=== PATIENT | female | born 1935 ===

== ENCOUNTER 2024-12-02 07:39 | Inpatient (IN) | payer MEDICARE, OTHER, SELFPAY ==
[2024-11-13 11:25] LABS: Hematocrit 48.6 % (37.0-47.0); Hemoglobin 16.6 g/dL (12.0-16.0); Mean Corp Hgb Conc. 34.2 g/dL (33.0-37.0); Mean Corpuscular Hgb 32.6 pg (27.0-31.0); Mean Corpuscular Volume 95.5 fL (81.0-99.0); Mean Platelet Volume 9.2 fL (7.4-10.4); Platelet Count 276 10^3/uL (130-400); Red Blood Cell Count 5.09 10^6/uL (4.20-5.40); Red Cell Dist. Width 13.2 % (11.5-14.5); White Blood Cell Count 9.4 10^3/uL (4.8-10.8)
[2024-11-13 12:01] LABS: ALT (SGPT) 17 U/L (0-35); AST (SGOT) 23 U/L (14-36); Albumin 4.1 g/dl (3.5-5.0); Alkaline Phosphatase 95 U/L (38-126); Blood Urea Nitrogen 21 mg/dl (7-17); Calcium 9.7 mg/dl (8.4-10.2); Carbon Dioxide 31 mmol/L (22-30); Chloride 101 mmol/L (98-107); Glucose 85 mg/dl (70-99); Potassium 4.4 mmol/L (3.5-5.1); Sodium 136 mmol/L (135-145); Total Bilirubin 0.7 mg/dl (0.2-1.3); Total Protein 6.9 g/dl (6.3-8.2); eGFR > 60.00
[2024-11-13 12:33] LABS: Glycohemoglobin (HgbA1c) 5.3 % (4.0-5.6)
[2024-11-13 14:15] VITALS: BMI 18.9
[2024-11-13 15:08] VITALS: BMI 18.9
--- NOTE | 2024-11-18 11:03 | VNURNOTE ---
Chart reveiwed. This author rec'ed update from Shey Falk MARLEN surgery moved to 11/25. Per message, patient prefers to go to [place] outpt PT after DC. Outpt date TBD.
Plan: Outpt PT at [place]. [facility] to assess and determine final DC dispo.
[2024-12-02] VITALS (18 sets, daily range): BP systolic 91–169; BP diastolic 42–84; PULSE 81
[2024-12-02] MEDS: TYLENOL 650 MG PO ×4 (08:00→19:45)
[2024-12-02] MEDS: CELEBREX 200 MG PO (08:01)
[2024-12-02] MEDS: NORMOSOL-R/PLASMALYTE-A 1000 IV ×2 (08:10→12:54)
[2024-12-02] MEDS: ROXICODONE 5 MG PO ×2 (11:27→19:45)
[2024-12-02] MEDS: VITAMIN D3 (cholecalciferol) 25 MCG PO (12:55)
[2024-12-02] MEDS: VITAMIN B1 100 MG PO (12:55)
--- NOTE | 2024-12-02 13:48 | W.PN.ORTHO ---
Today's Communication / Plan
-
D/c when clinically stable.
Pt has yet to schedule outpatient PT although she was advised to do so during her pre-op eval; will have daughter reach out to [place] [facility] to try and schedule RAL[facility].
Assessment
.
Distal Motor Intact: Yes
Dressing:
Scant areas of old incisional bleeding.
Assessment:
L hip OA s/p Deya jimenez/ Dr Rogers 12/02/24
DVT prophylaxis - ASA, b/l venous foot pumps
COPD and pulmonary nodules - monitor O2
- IS
- Continue inhaler
Chronic constipation secondary to current Tramadol - add nightly MOM to bowel regimen of Colace and Senna
Daily alcohol - 1 'small' glass of wine reported nightly
- Add thiamine/folic acid
- Consider Gabapentin, Serax HS
- Monitor for potential s/sx of withdrawal
History of recent tobacco abuse - last reported cigarette 11/10/24
- Would benefit from Cefadroxil upon d/c
Hypothyroidism
Skin cancer, status post excision
Hearing impairment bilaterally
The patient is an appropriate candidate for early discharge 12/03/24
Plan
.
Surgery / Date: Deya jimenez/ Dr Rogers 12/02/24
DVT Prophylaxis: Aspirin
Activity:
Out of bed.
PT/OT
Discharge Plan: Home w/ Outpatient PT
Subjective
.
.:
Patient resting comfortably in PACU.
L hip pain currently minimal.
Denies any new significant complaints.
Vital Signs and Labs
.
Vital Signs and Labs:
Lab Results
11/13/24 10:22
11/13/24 10:22
Temp Pulse Resp BP Pulse Ox
99.1 F 85 19 150/65 98
12/02/24 11:07 12/02/24 13:30 12/02/24 13:30 12/02/24 13:05 12/02/24 12:45
Physical Exam
-
HEENT: No pallor, cyanosis, or jaundice. Throat clear.
NECK: Supple. No JVD.
RESPIRATORY: Lungs clear to auscultation.
CVS: S1, S2 normal. RRR.�
ABDOMEN: Soft, non-tender. No distension.
EXTREMITIES: Strength equal, no calf pain with palpation/dorsiflexion. Calves soft.
EXPEDITER CLERK: AOx3. No focal deficits. charity fundraiser grossly intact
--- NOTE | 2024-12-02 14:32 | PTCARENOTE ---
1300 Patient S/P spinal in PACU reports no need to void. No bladder distention noted, bladder scan indicated 135ML of urine. Resting comfortably. Family continues to be updated on patient disposition.
[2024-12-02] MEDS: FOLVITE PO (15:25)
[2024-12-02] MEDS: ANCEF 5 IV ×2 (15:25→23:37)
[2024-12-02] MEDS: ASPIRIN 325 MG PO (17:07)
[2024-12-02] MEDS: DECADRON 4 MG PO (19:45)
[2024-12-02] MEDS: COLACE 100 MG PO (19:45)
[2024-12-02] MEDS: SENOKOT 17.2 MG PO (19:46)
[2024-12-02] MEDS: PEPCID 20 MG PO (21:07)
[2024-12-02] MEDS: BACTROBAN 2% OINTMENT 1 APPLIC NASAL (21:07)
[2024-12-02] MEDS: MILK OF MAGNESIA 30 ML PO (21:07)
[2024-12-03] MEDS: TYLENOL 650 MG PO ×3 (00:18→07:51)
--- NOTE | 2024-12-03 00:21 | PTCARENOTE ---
During hourly rounds, pt noted to be OOB at the bedside in the dark. RN asked pt where she was going, pt reported needing to void and was actively voiding at the bedside. Staff assist x2 w RW to commode for pt to void. Bed alarm placed, pt
reoriented to time, place and events. Pt stated 'Oh, i forgot I had surgery'. Safety maintained. Assessment ongoing.
[2024-12-03] MEDS: SYNTHROID 125 MCG PO (06:03)
[2024-12-03] MEDS: ROXICODONE 5 MG PO ×2 (06:03→08:45)
[2024-12-03 07:19] VITALS: BP 121/55
[2024-12-03] MEDS: VITAMIN D3 (cholecalciferol) 25 MCG PO (07:51)
[2024-12-03] MEDS: FOLVITE 0.5 MG PO (07:51)
[2024-12-03] MEDS: ASPIRIN 325 MG PO (07:51)
[2024-12-03] MEDS: COLACE 100 MG PO (07:51)
[2024-12-03] MEDS: DECADRON 4 MG PO (07:51)
[2024-12-03] MEDS: VITAMIN B1 100 MG PO (07:51)
[2024-12-03] MEDS: CELEBREX 200 MG PO (07:51)
[2024-12-03] MEDS: SENOKOT 17.2 MG PO (07:51)
[2024-12-03] MEDS: BACTROBAN 2% OINTMENT 1 APPLIC NASAL (08:03)
[2024-12-03] MEDS: LIPITOR 20 MG PO (08:03)
[2024-12-03] MEDS: SPIRIVA RESPIMAT 2.5 MCG 2 PUFF INH (08:37)
[2024-12-03] MEDS: STRIVERDI RESPIMAT 2 PUFF INH (08:37)
[2024-12-03 09:16] VITALS: BP 133/54
[2024-12-03 10:08] VITALS: BP 107/50; BP 122/48; PULSE 72; O2SAT 95
--- NOTE | 2024-12-03 10:27 | W.PN.ORTHO ---
Today's Communication / Plan
-
D/c today since clinically stable.
PT to assess again today w/ family members present prior to d/c.
Assessment
.
Distal Motor Intact: Yes
Dressing:
Scant areas of old incisional bleeding.
Assessment:
L hip OA s/p Deya GEE w/ Dr Rogers 12/02/24
DVT prophylaxis - ASA, b/l venous foot pumps
COPD and pulmonary nodules - O2 stable on RA
- IS
- Continue inhaler
Chronic constipation secondary to current Tramadol - continue nightly MOM to bowel regimen of Colace and Senna
Daily alcohol - 1 'small' glass of wine reported nightly
- Add thiamine/folic acid
- Consider Gabapentin, Serax HS
- Monitor for potential s/sx of withdrawal
Plan
.
Surgery / Date: Deya GEE w/ Dr Rogers 12/02/24
DVT Prophylaxis: Aspirin
Activity:
Out of bed.
PT/OT
Discharge Plan: Home w/ VN (per PT/OT recs today)
Subjective
.
.:
Patient resting comfortably in her bed.
L hip pain overall well controlled w/ current pain meds.
Denies any new significant complaints.
Eager for potential d/c today.
Vital Signs and Labs
.
Vital Signs and Labs:
Lab Results
11/13/24 10:22
11/13/24 10:22
Temp Pulse Resp BP Pulse Ox
98.3 F 62 18 121/55 95
12/03/24 07:19 12/03/24 07:19 12/03/24 08:41 12/03/24 07:19 12/03/24 08:41
Non-invasive Hgb result: 14.9
Physical Exam
-
HEENT: No pallor, cyanosis, or jaundice. Throat clear.
NECK: Supple. No JVD.
RESPIRATORY: Lungs clear to auscultation.
CVS: S1, S2 normal. RRR.�
ABDOMEN: Soft, non-tender. No distension.
EXTREMITIES: Strength equal, no calf pain with palpation/dorsiflexion. Calves soft.
TRANSFER MAN: AOx3. No focal deficits. umbrella supervisor grossly intact
--- NOTE | 2024-12-03 10:37 | W.DS.TRANS ---
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
-
Discharge Instructions:
Sleep Apnea Risk Low
Discharge Diagnosis/Procedures L hip OA s/p L MARLEN w/ Dr Rogers 12/02/24
Diet Other diet
Additional Diets Diabetic carb controlled x1 week for wound
healing/infection prevention
Activity As tolerated,With Walker
Additional Activity Patient will need supervision with all mobility
and transfers.
Driving Restrictions Not until seen by your Dr
Bathing Restrictions OK to Shower
Other Services PT,OT,VN
Wound Care Dressing to be removed 1 week post-surgery.
Instructions:
Stand-Alone Forms: Total Hip/Knee Replacement D/C
Changes to Home Medications: Yes
Discharge Medications:
DC Medications w/original date entered in [facility]
atorvastatin 20 mg tablet 20 mg PO DAILY High Cholesterol 11/11/24
cholecalciferol (vitamin D3) 25 mcg (1,000 unit) tablet (Vitamin D3) 25 mcg PO DAILY Supplement 11/11/24
glycopyrrolate 9 mcg-formoterol 4.8 mcg HFA aerosol inhaler (Bevespi Aerosphere) 2 puff inhalation BID Lung/Breathing Issues 11/11/24
levothyroxine 125 mcg capsule 125 mcg PO DAILY Thyroid 11/11/24
multivitamin 1 tab PO DAILY Supplement 11/11/24
mupirocin 2 % topical ointment 1 applic intranasal BID #1 tube 11/13/24
acetaminophen 500 mg tablet (Tylenol Extra Strength) 1,000 mg (2 x 500 mg) PO Q6H #60 tabs 12/02/24
aspirin 325 mg tablet 325 mg PO DAILY #30 tabs 12/02/24
celecoxib 200 mg capsule 200 mg PO DAILY #14 caps 12/02/24
dexamethasone 4 mg tablet 4 mg PO BID Anti-inflammatory #5 tabs 12/02/24
docusate sodium 100 mg capsule 100 mg PO BID #30 caps 12/02/24
famotidine 20 mg tablet (Pepcid) 20 mg PO HS #30 tabs 12/02/24
magnesium hydroxide 400 mg/5 mL oral suspension (Milk of Magnesia) 30 ml PO HS #3,780 mL 12/02/24
ondansetron HCl 4 mg tablet 4 mg PO Q6H PRN nausea and vomiting #30 tabs 12/02/24
sennosides 8.6 mg tablet (Brandy-emil) 17.2 mg (2 x 8.6 mg) PO BID #30 tabs 12/02/24
cefadroxil 500 mg capsule 500 mg PO DAILY #7 caps 12/03/24
oxycodone 5 mg tablet 5 mg PO Q6H PRN moderate-severe pain #25 tabs 12/03/24
Home Medication Changes
acetaminophen 500 mg tablet (Tylenol Extra Strength) 1,000 mg (2 x 500 mg) PO Q6H #60 tabs 12/02/24
aspirin 325 mg tablet 325 mg PO DAILY #30 tabs 12/02/24
celecoxib 200 mg capsule 200 mg PO DAILY #14 caps 12/02/24
dexamethasone 4 mg tablet 4 mg PO BID Anti-inflammatory #5 tabs 12/02/24
docusate sodium 100 mg capsule 100 mg PO BID #30 caps 12/02/24
famotidine 20 mg tablet (Pepcid) 20 mg PO HS #30 tabs 12/02/24
magnesium hydroxide 400 mg/5 mL oral suspension (Milk of Magnesia) 30 ml PO HS #3,780 mL 12/02/24
ondansetron HCl 4 mg tablet 4 mg PO Q6H PRN nausea and vomiting #30 tabs 12/02/24
sennosides 8.6 mg tablet (Brandy-emil) 17.2 mg (2 x 8.6 mg) PO BID #30 tabs 12/02/24
cefadroxil 500 mg capsule 500 mg PO DAILY #7 caps 12/03/24
oxycodone 5 mg tablet 5 mg PO Q6H PRN moderate-severe pain #25 tabs 12/03/24
Pending Results: No
--- NOTE | 2024-12-03 11:59 | VNURNOTE ---
Chart reviewed. Plan is now for home health. Home Health Liaison met with patient and family at bedside to discuss [facility] nurse/therapy, visits, schedule and homebound status. All are agreeable and understands that visits at home will be 2-3 x per
week to assess and teach medical management. [facility] contact information provided. All are aware that [facility] will contact them for start of care in 1-2 days after discharge from .
[facility] referral completed in [facility].
--- NOTE | 2024-12-03 12:10 | CM ---
Initial assessment and case management consult completed at bedside with patient and daughter
IMM benefit explained; form signed @ [id number]
Pharmacy verified: [facility] @ [address]
Patient and her live in a one floor in-law suite of daughter's home; 2 steps to enter; bath has tub w/shower; shower chair
History of COPD; no home oxygen
PLOF: ambulated without a device; independent with ADLs; however present in the bathroom when she bathes; drives
Has a rolling walker; none provided
NO SNF or home health utilization history
Family will transport home
Agreeable to home health services; no agency preference; referral sent to [facility]
Plan: Discharge to home today with [facility] home health services
[2024-12-03 12:31] VITALS: BP 113/50
== END 2024-12-03 12:36 | disposition home health service (06) | DRG 470 ==
LOC: 2 SOUTH 07:39
PROVIDERS: ADMITTING PHYSICIAN Orthopaedic Surgery; FAMILY PHYSICIAN Family Medicine
PROC: 0SRB03A Replacement of Left Hip Joint with Ceramic Synthetic Substitute, Uncemented, Open Approach (ICD-10-PCS; 2024-12-02)
DX: M16.12 Unilateral primary osteoarthritis, left hip (principal); M85.80 Other specified disorders of bone density and structure, unspecified site; J44.9 Chronic obstructive pulmonary disease, unspecified; R91.8 Other nonspecific abnormal finding of lung field; K59.09 Other constipation; F17.200 Nicotine dependence, unspecified, uncomplicated; E03.9 Hypothyroidism, unspecified; H91.93 Unspecified hearing loss, bilateral
CPT/HCPCS: 36415; 73502; 80053; 83036; 85027; 87070; 93005; 94640; 97110; 97116; 97162; 97166; 97530; 97535; 99406; C1776